=== PATIENT | female | born 1950 | race Caucasian/White ===

== ENCOUNTER → 2020-04-03 | Outpatient (CLI) | payer MEDICARE, OTHER ==
[~2020-04-03] MED LIST: ALLOPURINOL100 MG PO; APIDRA100 U/ML SC; ASPIRIN81 M1 PO; COZAAR25 MG PO; COZAAR50 MG; HUMALOG 751 UNIT/0.0 SC; HUMALOG100 U/ML; HUMALOG100 U/ML SC; IMDUR30 MG; IMDUR30 MG PO; K-DUR 1010 MEQ PO; KLOR-CON 1010 MEQ; KOMBIGLYZE XR 11 TE1; LANTUS100 U/ML SC; PRAVACHOL20 MG PO; TENORETIC-25/501 TAB; VITAMIN D50000 I3 PO
== END | disposition home or self-care (01) ==
LOC: CARD 12:23
PROVIDERS: ATTEND Internal Medicine Cardiovascular Disease
DX: I08.1 Rheumatic disorders of both mitral and tricuspid valves (principal); I10 Essential (primary) hypertension; R60.0 Localized edema